=== PATIENT | female | born 1990 | race Hispanic/Latino ===

== ENCOUNTER 2019-10-16 15:31 | Inpatient (IN) | payer OTHER, SELFPAY ==
[2019-10-16] VITALS (19 sets, daily range): BP systolic 81–122; BP diastolic 49–98; PULSE 55–97; RESP 16; TEMP 36.4–37.1; O2SAT 99; BMI 37.4
--- NOTE | 2019-10-16 16:02 | LDADM ---
This patient, Iwona Kelley, was admitted to Labor/Delivery/Recovery 106 on 10/16/19 at 15:31. Plans for labor, pain management and were discussed with patient. Patient/family oriented to hospital policies and general routines including ID bracelet, bed and alarms, visiting hours, pain management, procedures, bathroom and other care routines, personal items, smoking policy, room service/diet and guest tray routines, security routines, and visiting hours. Patient/Family are encouraged to report perceived risks to care and to ask questions if they do not understand what they are told or what they should do. See OBIX for further documentation.
--- NOTE | 2019-10-16 16:13 | WPDOBADMIT ---
Obstetrics - Admit Note Admission Note: record reviewed. Additions to the history and/or subsequent changes in the physical findings follow. 28 y/o at 37 6/7 weeks here with contractions. Was examined in the office by Dr. Anupam Rubio and found to have cervical dilation to 6 cm. GBS neg. Her partner is on his way here from work. AVSS NST good variability. TOCO: contractions irregularly ABD soft, nontender, gravid, vertex EXT nontender Cervix 6cm as above. A: IUP at term with labor. P: Anticipate
[2019-10-16 16:14] LABS: Basophils Percent Auto 0.1 % (0.2-1.2); Eosinophils Percent Auto 0.3 % (0-4.4); Hematocrit 30.5 % (37.0-47.0); Hemoglobin 10.1 g/dL (12.0-15.0); Immature Granulocyte Absolute 0.02 K/mm3 (0.00-0.031); Immature Granulocyte Percent A 0.3 % (0-0.5); Lymphocytes Absolute Auto 1.33 K/mm3 (0.9-3.2); Lymphocytes Percent Auto 19.1 % (18.3-44.2); Mean Corpuscular HGB Conc 33.1 g/dl (32-36); Mean Corpuscular Hemoglobin 30.2 pg (26-34); Mean Corpuscular Volume 91.3 fl (80-100); Mean Platelet Volume 12.2 fl (7.4-10.4); Monocytes Absolute Auto 0.3 K/mm3 (0.1-0.6); Monocytes Percent Auto 4.9 % (2.6-8.5); Neutrophils Absolute Auto 5.3 K/mm3 (1.3-6.7); Neutrophils Percent Auto 75.3 % (45.5-73.1); Platelet Count Result 171 k/mm3 (150-375); Red Blood Count 3.34 M/mm3 (4.2-5.4); Red Cell Distribution Width 13.5 % (11.5-14.5)
--- NOTE | 2019-10-16 16:39 | PM.OBPNLAB ---
Pain Control Date/time seen: 10/16/19 16:39 Comments: Feeling irregular contractions. Pelvic Exam Dilation (cm): 6 Effacement (%): 50 station: -1 Comments: AROM with clear fluid. Contractions Contraction frequency: 5 Contraction pattern: Irregular Status status: Category l Assessment and Plan Comments: Expectant management. Anticipate .
[2019-10-16] MEDS: OXYTOCIN 30 UNITS/NS 500 ML 30 UNITS/500 ML BAG IV CONT (18:47)
[2019-10-16] MEDS: LACTATED RINGERS 1,000 ML 125 ML IV CONT (18:48)
--- NOTE | 2019-10-16 20:05 | P.PCNOB_ITS ---
OB - Delivery Note Procedure Delivery date: 10/16/19 Procedure: Delivery monitor: external FHT and external uterine Route of delivery: Delivery repair: vicryl (3-0) Specimen: Yes (cord blood) Estimated blood loss (mL): 310 Anesthesia type: Local (1% lidocaine) Disposition: PACU Complications: None Narrative: 28 y/o at 37 6/7 weeks gestation who presented to the hospital with contractions. Labor was diagnosed. Amniotomy was performed with return of clear fluid. Oxytocin was subsequently administered intravenously for labor augmentation. Her labor progressed and her cervix dilated completely. She pushed with good effort and delivered the 's head to the perineum, followed by the body. The nose and mouth were bulb suctioned. After a delay, the cord was clamped and cut. The infant was handed off the field. Cord blood was collected. The placenta delivered spontaneously and was grossly normal in appearance. The usual 3 vessel cord was noted. A right-sided labial laceration was sustained, as was a first degree midline perineal laceration. Ten mL of 1% lidocaine was infiltrated, and these were reapproximated using 3-0 Vicryl in interrupted, [id number] fashion. Excellent hemostasis resulted as did excellent reapproximation of the normal anatomy. Needle and instrument counts were correct. The patient was taken to recovery room in stable condition. The infant went to the nursery in stable condition. I was present and scrubbed for the entire delivery. [place] Baby Date of : 10/16/19 Time of : 19:43 Weeks of gestation at delivery: 37 Infant gender: Male Weight (pounds): 7 Weight (ounces): 10 presentation: vertex position: Right Occiput Anterior Placenta delivery description: Spontaneous and Normal Configuration cord vessel description: 3 Vessels score one minute: 9 score five minutes: 9
--- NOTE | 2019-10-16 20:12 | PM.OBDSVD ---
DS: Admitting Diagnosis Admitting Diagnosis Admitting Diagnosis: Labor at term DS: Discharge Diagnosis Discharge Diagnosis (1) (normal spontaneous vaginal delivery): Code(s): O80 - Encounter for full-term uncomplicated delivery Status: Acute OB - DS: Summary OB Procedures : None OB Procedures Intrapartum: Spontaneous Vag Delivery OB Procedures: : None DS: Data Data Completed and Pending Labs on day of discharge: Labs from last 24 hours 10/16/19 10/16/19 10/16/19 16:06 16:06 16:06 WBC 7.0 RBC 3.34 L Hgb 10.1 L Hct 30.5 L MCV 91.3 MCH 30.2 MCHC 33.1 RDW 13.5 Plt Count 171 MPV 12.2 H Immature Gran % (Auto) 0.3 Neut % (Auto) 75.3 H Lymph % (Auto) 19.1 [place] % (Auto) 4.9 Eos % (Auto) 0.3 Baso % (Auto) 0.1 L Lymph # (Auto) 1.33 [place] # (Auto) 0.3 Eos # (Auto) 0.0 Baso # (Auto) 0.0 Abs Immat Gran (auto) 0.02 Absolute Neuts (auto) 5.3 Absolute Nucleated RBC 0.0 Nucleated RBC % 0.0 RPR Pending Blood Type A Positive Antibody Screen Negative Discharge Plan Discharge Attending physician on discharge: Dhruv Toussaint Discharging Clinician: Dhruv Toussaint Patient Disposition: Home, Self-Care Activity: pelvic rest Diet: regular Discharge Instructions: Education: Mom and Baby Guide Given to: Mother Follow-Up: Call your delivering provider's office for an appointment to be seen in: 4 Weeks Mom and baby should come to the [facility] for the follow-up appointment. Appointment Date/Time: October 18, 2019 at 10:00 am What to expect at your follow-up visit: Blood Pressure Check Physical Assessment Call [phone] if you are unable to keep your appointment time. BREAST CARE: 1. Wear a snug supportive bra. 2. For engorgement discomfort: Breast Feeding: A. Apply warm moist washcloths B. Express milk as needed to relieve engorgement C. Wear loose clothing 3. For sore nipples: A. Identify correct latch-on B. Apply warm moist washcloths before and after nursing C. Air dry nipples after nursing D. May apply Lansinoh cream to nipples EPISIOTOMY/PERINEAL CARE: 1. Until bleeding stops, use your kyle bottle after urinating 2. Change your pad frequently throughout the day 3. You may take sitz baths several times a day (fill your bathtub with warm water and soak for 20 minutes.) Do NOT bathe in the water 4. No tub baths until seen by your physician - You may shower ACTIVITY: 1. Rest as much as possible. 2. Do not exercise or lift anything heavier than your baby (such as laundry or other children.) 3. Avoid stairs or driving as much as possible. 4. Do not put anything into the vagina. No douching, tampons, or sexual activity until seen by physician. NOTIFY PHYSICIAN IF YOU HAVE ANY QUESTIONS OR IF ANY OF THE FOLLOWING SYMPTOMS OCCUR: 1. If your perineum becomes red, swollen, or more painful than what you have experienced in the hospital. 2. If your vaginal bleeding becomes foul smelling. 3. If your vaginal bleeding becomes more heavy than a period or if your bleeding changes from pink to bright red. However, you may pass an occasional walnut-sized clot once or twice for the first week . 4. If you experience a sharp, shooting pain in your calves. 5. If you discover a hard, reddened area on your breast or if you experience flu-like symptoms. DIET: 1. Eat regular, well-balanced meals. 2. Drink plenty of fluids daily. If , drink to thirst. Call or return if temperature above 100.4? F, increased abdominal pain, increased vaginal bleeding or any new problems. Stand Alone Forms: General Discharge Information Follow-up/Referrals: Dhruv Toussaint MD [Physician] - (6 weeks) Discharge Medications: New ibuprofen 600 mg tablet 600 mg
[2019-10-16] MEDS: OXYTOCIN 30 UNITS/NS 500 ML 30 UNITS/500 ML BAG 125 UNITS IV CONT (20:15)
[2019-10-16] MEDS: IBUPROFEN 600 MG TABLET PO (20:56)
[2019-10-16] MEDS: WITCH HAZEL 40 PADS 1 PAD TOPICAL (21:21)
[2019-10-16] MEDS: BENZOCAINE 20% AER SPR (*SP) 56 GM CAN 1 SPRAY TOPICAL (21:21)
--- NOTE | 2019-10-16 22:13 | PC.NURSE ---
This patient, Iwona Kelley, was received from Labor & Delivery on 10/16/19 at 2205. Personal belongings list checked and signed. Patient/family oriented to unit policies and routines
[2019-10-16] MEDS: ACETAMINOPHEN 325 MG TABLET 650 MG PO (22:38)
[2019-10-17] MEDS: IBUPROFEN 600 MG TABLET PO ×3 (05:00→16:16)
[2019-10-17 05:40] LABS: Hematocrit 26.4 % (37.0-47.0); Hemoglobin 8.6 g/dL (12.0-15.0)
[2019-10-17 08:05] VITALS: BP 103/64; PULSE 56; RESP 18; TEMP 37.6; O2SAT 100
--- NOTE | 2019-10-17 08:47 | PM.OBPNVD ---
OB - PN: Subj Subjective Date/time seen: 10/17/19 08:47 Narrative: Would like something a little stronger for cramping pain. Otherwise, doing well. Would like circ for son. OB - PN: Obj Data Labs CBC & Chem 7: 10/17/19 05:01 Labs: Laboratory Results - last 24 hr 10/16/19 10/16/19 10/17/19 16:06 16:06 05:01 WBC 7.0 RBC 3.34 L Hgb 10.1 L 8.6 L Hct 30.5 L 26.4 L MCV 91.3 MCH 30.2 MCHC 33.1 RDW 13.5 Plt Count 171 MPV 12.2 H Immature Gran % (Auto) 0.3 Neut % (Auto) 75.3 H Lymph % (Auto) 19.1 [place] % (Auto) 4.9 Eos % (Auto) 0.3 Baso % (Auto) 0.1 L Lymph # (Auto) 1.33 [place] # (Auto) 0.3 Eos # (Auto) 0.0 Baso # (Auto) 0.0 Abs Immat Gran (auto) 0.02 Absolute Neuts (auto) 5.3 Absolute Nucleated RBC 0.0 Nucleated RBC % 0.0 Blood Type A Positive Antibody Screen Negative OB - PN A/P Plan Comments: A: PPD#1, doing well. P: Routine care. Exam Psych: Other: AVSS ABD soft, nontender, fundus firm EXT nontender
[2019-10-17] MEDS: MULTIVIT/MIN/PREN/FOL AC/IRON TABLET 1 TAB PO (09:17)
[2019-10-17] MEDS: DOCUSATE SODIUM 100 MG CAPSULE PO ×2 (09:17→16:16)
[2019-10-17] MEDS: POLYSACCHARIDE IRON COMPLEX 150 MG CAPSULE PO ×2 (09:18→16:16)
[2019-10-17] MEDS: LANOLIN (LANSINOH) 7.5 GM CREAM 1 APPLIC TOPICAL (09:21)
[2019-10-17 09:41] LABS: Rapid Plasma Reagin Non-Reactive (NonReactive)
--- NOTE | 2019-10-17 10:30 | PC.NURSE ---
Consult with pt., mother reports infant is eagerly feeding without difficulties or discomfort. This is mother's 4th to breastfeed. M other reports infant just fed at 1000, requested mother call out for next feeding for observation. Mother wishes to be discharged today. Reviewed LC stock speculator need to see infant feeding. Reviewed feeding cues, frequencies, duration of feedings, feeding elimination flow sheet, and signs of adequate intake. Request mother call out next feeding, next feeding should be initiated three hours from start of last feeding or if feeding cues are noted before. Mother voiced understanding of information shared. Mother is feeding as required and waking infant to feed if needed. has had several by feeding log in the past 24 hours. Mother states she feels confident to continue effective at home. Reviewed transition to breast milk, signs of adequate intake, and engorgement/relief. Instructed to call ICP if intake/output less than required. Reviewed regular medications mother is taking. Information provided per Mary Alice. Reviewed community resources on the [facility] website and in the Mom/Baby guide. Information on outpatient services provided. Mother has no further questions at this time.
[2019-10-17 19:30] VITALS: BP 107/64; PULSE 53; RESP 18; TEMP 36.4
[2019-10-17] MEDS: TETANUS,DIPHTHERIA,AC PERTUSSIS ADULT (0.5 ML) BOOSTRIX IM (21:14)
[2019-10-18 10:20] VITALS: BP 116/67; PULSE 54; RESP 20; TEMP 37.2; O2SAT 100
[2019-10-18 11:16] VITALS: BP 131/85; PULSE 78; RESP 20; TEMP 37; O2SAT 100
== END 2019-10-17 21:28 | disposition home or self-care (01) | DRG 560 ==
LOC: ANHLDR 20:14 → ANHOB2 22:30
PROVIDERS: Admitting Provider Obstetrics & Gynecology; PCP Family Medicine; Visit Provider Obstetrics & Gynecology
DX: O70.0 First degree perineal laceration during delivery (principal); Z37.0 Single live birth; Z3A.37 37 weeks gestation of pregnancy
CPT/HCPCS: 36415; 85014; 85018; 85025; 86592; 86850; 86900; 86901; 90715; A9270; J2590; J7120

== ENCOUNTER 2020-02-19 00:43 | Outpatient (CLI) | payer OTHER, SELFPAY ==
[2020-02-20 03:00] LABS: SARS-CoV-2 RNA PCR Negative
== END 2020-02-19 00:44 | disposition home or self-care (01) ==
LOC: ANHCOVIDDT 00:43
PROVIDERS: PCP Family Medicine; Visit Provider Obstetrics & Gynecology
DX: Z01.812 Encounter for preprocedural laboratory examination (principal); Z20.828 Contact with and (suspected) exposure to other viral communicable diseases
CPT/HCPCS: 87635; C9803; U0003

== ENCOUNTER 2020-02-21 02:23 | Day surgery (SDC) | payer OTHER, SELFPAY ==
[2020-02-10 14:39] VITALS: BMI 34.5
[2020-02-21] VITALS (9 sets, daily range): BP systolic 102–122; BP diastolic 61–80; PULSE 57–98; RESP 14–20; TEMP 36–36.1; O2SAT 98–100
--- NOTE | 2020-02-21 00:18 | PM.IMHP ---
H&P: HPI History of Present Illness Date/Time: 02/21/20 00:18 Chief complaint: Desires Sterilization Narrative: 29 y/o desiring permanent contraception. In addition, she has heavy, long-lasting menses and is interested in surgical management of that problem. Finally, she would like to have have her Nexplanon removed. Review of Systems Review of Systems: All systems reviewed & are unremarkable except as noted in HPI and below PMFSH Past Medical History Medical History (Updated 02/21/20 @ 11:53 by Dhruv Toussaint MD) History of meningitis Surgical History Surgical History (Updated 02/21/20 @ 11:53 by Dhruv Toussaint MD) History of surgery on right wrist Family History Family History Mother Diabetes mellitus Sibling Diabetes mellitus Social History Social History Years smoked: 1 Smoking status: Never smoker Smoking end date: 02/10/08 Alcohol intake: current Alcohol use details: 3 to 4 cans beer monthly Substance use: never Living arrangements: with family Spiritual care concerns: No Meds Home Medications and Allergies Home Medications Medication Instructions Recorded Confirmed Type No Home Medications 02/10/20 02/10/20 History Allergies Allergy/AdvReac Type Severity Reaction Status Date / Time No Known Allergies Allergy Verified 02/10/20 14:38 Exam Const: Orientation/consciousness: patient oriented x3 Other: Well-developed, well-nourished female in no acute distress. Neck: Thyroid: thyroid normal Lymphatic: no lymphadenopathy noted (in neck, axilla or inguinal nodes) Resp: Effort & Inspection: normal respiratory effort Auscultation: clear to auscultation bilaterally Cardio: Rate: regular rate Rhythm: regular rhythm Heart sounds: S1 normal heart sound present and S2 normal heart sound present GI: Other: ABD: Soft, nontender, nondistended. No guarding or rebound tenderness. No hepatosplenomegaly. : General: Yes no CVA tenderness Other: External genitalia: normal female hair distribution, without lesion. Urethral meatus: no lesion, non prolapsed. Bladder: no mass, nontender Vagina: well-estrogenized, without lesion or discharge. No cystocele or rectocele. Cervix: no lesion or discharge. Uterus: small, anteverted, freely mobile, nontender Adnexa: no mass or tenderness. Anus/perineum: no lesions, nontender Back/Spine/Pelvis: Back: no CVA tenderness Skin: General skin exam: normal color and no rashes or lesions noted Neuro: General: patient oriented x3 Extrem: Other: Extremities: nontender with no edema Psych: Mental Status: mental status grossly normal Affect: normal affect Assessment and Plan Assessment and plan (1) Menometrorrhagia: Code(s): N92.1 - Excessive and frequent menstruation with irregular cycle Status: Acute (2) Unwanted fertility: Code(s): Z30.09 - Encounter for other general counseling and advice on contraception Status: Acute Assessment and Plan: She understands there are temporary methods of contraception available to her. She understands that there are nonsurgical options as well as surgical options. She understands that tubal ligation will render her permanently sterile. She understands that there is a failure rate associated with tubal ligation, as well as an inherent ectopic gestation risk. Furthermore, she understands risks of surgery to include risks of anesthesia, risks of pain, infection, bleeding, blood products, thromboembolic phenomena and damage to adjacent structures such as bowel, bladder, ureters, blood vessels and nerves. She understands all these risks and elects to proceed with surgery. She has received the [employer] pamphlet on surgical sterilization. Finally, she would like to have her Nexplanon julee removed and to undergo hysteroscopy, D&C and endometrial a
--- NOTE | 2020-02-21 11:23 | WPDANESEPPF ---
Anes - Initial Pre Proc Eval Procedure: Operation Date: 02/21/20 13:00 Proposed Procedures p Laparoscopic Bilateral Tubal Sterilization With Fallopian Rings - Dhruv Toussaint MD s Hysteroscopy, Dilation and Curettage, Ruth Ann Ablation - Dhruv Toussaint MD Date/Time: 02/21/20 11:23 Surgeon: Dhruv Toussaint MD Pre Op Diagnosis: Desires Sterilization Patient Data Age: 29 Gender: F Height: 5 ft 4 in Weight: 91.4 kg Allergies Allergy/AdvReac Type Severity Reaction Status Date / Time No Known Allergies Allergy Verified 02/10/20 14:38 Home Medications Medication Instructions Recorded Confirmed Type No Home Medications 02/10/20 02/10/20 History Patient hx anesthesia problems: none Family hx anesthesia problems: none PMFSH Family History Family History Mother Diabetes mellitus Sibling Diabetes mellitus Social History Social History Years smoked: 1 Smoking status: Never smoker Smoking end date: 02/10/08 Alcohol intake: current Alcohol use details: 3 to 4 cans beer monthly Substance use: never Living arrangements: with family Spiritual care concerns: No Anes - Eval Final PreProcedure Day of Procedure 02/21/20 11:23 Patient weight: obese Heart: regular rate and rhythm Lungs: clear to auscultation Airway: Mallampati scale class II Neurological: alert and oriented Last oral intake: >/= 8 hours ASA classification: II Emergent: no Anesthetic plan: proceed Anesthesia type and monitoring: general ETT and standard monitoring Informed Consent: The patient's anesthetic plan and its attendant risks and benefits were discussed with the patient/family/POA. Questions were solicited and answers provided to the satisfaction of the patient/family/POA.
[2020-02-21] MEDS: LACTATED RINGERS 1,000 ML 30 ML IV CONT ×2 (11:40→14:14)
--- NOTE | 2020-02-21 12:00 | WPDHPUPDATE1 ---
History and Physical Update Update Date/Time: 02/21/20 12:00 History and Physical has been reviewed, including an updated exam of the patient. There are NO changes in the patient's condition. Risks, benefits, and alternatives have been discussed and questions answered. Patient agrees to proceed with procedure.
--- NOTE | 2020-02-21 14:07 | PM.PROC ---
Procedure Note - Detailed Date of procedure: 02/21/20 Pre-op diagnosis: Desires Sterilization Desired sterility Menometrorrhagia Post-op diagnosis: same Procedure performed: Laparoscopic bilateral tubal ligation with Falope rings Hysteroscopy Dilation and sharp curettage Endometrial ablation Removal of Nexplanon contraceptive julee Description of procedure: The patient was taken to the operating room where she was prepared and draped in the usual sterile fashion the dorsal lithotomy position. The bladder was drained with a red rubber catheter. A sterile speculum was placed into the vagina and anterior lip of the cervix was grasped with a single-tooth tenaculum. The acorn uterine manipulator was placed. The speculum was withdrawn. Gloves were changed and attention was turned to the abdomen. An infraumbilical skin incision was made below the umbilicus. The abdomen was tented and the 5mm bladeless trocar was advanced under direct laparoscopic visualization. Pneumoperitoneum was administered using carbon dioxide gas. A survey of the pelvis and abdomen yielded the findings noted above. A 2nd 8mm skin incision was made above the symphysis pubis in the midline and the bladeless trocar was advanced under direct laparoscopic visualization. The right fallopian tube was identified by following it out to the fimbriated end. It was then grasped in the midportion and a Falope ring was applied. An excellent application was noted, with a knuckle of tube distal to the ring. The device was reloaded and the left fallopian tube was similarly identified and ligated. Once again, an excellent application was noted. A total of 6mL of 1% lidocaine was then infiltrated into the serosa of the proximal tubes for pain control. The ports were withdrawn. Gas was allowed to escape. The skin incisions were reapproximated using 4 0 Vicryl in interrupted subcuticular fashion. Dermaflex was applied externally. Attention was then redirected to the vagina where the acorn manipulator was withdrawn and the speculum was reintroduced. Ten mL of 1% lidocaine was administered in a paracervical block. The cervix was gently dilated using Hegar dilators until an 8mm dilator could be passed. Hysteroscopy was performed using sterile saline as distention medium with the findings noted above. Sharp curettage was then performed and endometrial curettings were collected on a Telfa pad and passed off to be sent to pathology. Finally, the Ruth Ann device was advanced. Endometrial ablation commenced without difficulty. A 2nd look was taken with the hysteroscope, confirming excellent coverage of the endometrial cavity. The tenaculum was removed. Hemostasis was excellent. Attention was then directed to the left arm which was prepped with Betadine and infiltrated with an additional 2mL of 1% lidocaine. A stab incision was made with a 11. Scalpel. A curved hemostat was used to grasp the Nexplanon julee. It was easily removed, intact, and discarded. Hemostasis excellent here as well. Sponge, lap, needle and instrument counts were correct. The wound was dressed with Steri-Strips and a pressure dressing. She was awakened and taken to recovery room in stable condition. I was present and scrubbed for the entire procedure. Implants: Falope rings x 2 Anesthesia: GETA and local (1% lidocaine) Surgeon: Dhruv Toussaint MD Estimated blood loss (mL): 10 Drains: No Packing: No Pathology: yes (endometrial curettings) Complications: None Condition: stable Disposition: PACU Findings: Normal-appearing uterus, tubes, ovaries, round and uterosacral ligaments bilaterally. Normal anterior and posterior cul de sac. Normal-appearing appendix. Normal right upper quadrant anatomy. Endometrial cavity was unremarkable. Both tubal ostia seen. The uterus sounded to a depth of 8cm with a cervical length of 3cm, giving a subtracted uterine cavity length of 5cm. The Nexplanon julee was noted to be in the expected location in
[2020-02-21] MEDS: fentaNYL CITRATE INJ (*CRX) 100 MCG/2 ML VIAL 25 MCG IV PUSH ×4 (14:44→15:19)
[2020-02-21] MEDS: KETOROLAC 30 MG/ML VIAL (*BKC) IV PUSH (14:53)
[2020-02-21] MEDS: oxyCODONE HCL (*CRX) 5 MG TAB IR PO (15:58)
== END 2020-02-21 16:30 | disposition home or self-care (01) ==
PROVIDERS: PCP Family Medicine; Visit Provider Obstetrics & Gynecology
PROC: (CPT 58671; principal; 2020-02-21 13:00)
PROC: 0U5B8ZZ Destruction of Endometrium, Via Natural or Artificial Opening Endoscopic (ICD-10-PCS; CPT 58563; 2020-02-21 13:00)
DX: Z30.2 Encounter for sterilization (principal); N92.1 Excessive and frequent menstruation with irregular cycle; Z30.49 Encounter for surveillance of other contraceptives; E66.9 Obesity, unspecified; Z68.35 Body mass index [BMI] 35.0-35.9, adult
CPT/HCPCS: 58563; 11982; 58671; 88305; A4264; A9270; J1885; J2250; J3010; J7030; J7120

== ENCOUNTER 2021-11-17 07:50 | Outpatient (CLI) | payer OTHER, SELFPAY ==
--- NOTE | ~2021-11-17 | MR_ITS ---
EXAMINATION: MR brain/brain stem wo/w con DATE: 11/17/2021 08:36 INDICATION: Postconcussion syndrome. TECHNIQUE: Magnetic resonance imaging (MRI) of the brain and brainstem was performed without and with 18 mL MultiHance intravenous contrast. COMPARISON: None. FINDINGS: There is no intracranial hemorrhage, acute infarction, or abnormal intracranial mass lesion . The ventricles are normal in size. The paranasal sinuses are clear. The orbits are normal. The mast oid air cells are normal. IMPRESSION: 1. Normal brain. Reviewed, dictated and finalized at location A. IMPRESSION: 1. Normal brain.
== END 2021-11-17 07:51 | disposition home or self-care (01) ==
PROVIDERS: PCP Family Medicine; Visit Provider Family Medicine
DX: F07.81 Postconcussional syndrome (principal)
CPT/HCPCS: 70553; A9577

== ENCOUNTER 2023-06-12 17:18 | Emergency (ER) | payer OTHER, SELFPAY ==
[2023-06-12 17:26] VITALS: BP 116/69; PULSE 92; RESP 16; TEMP 37; O2SAT 98
--- NOTE | 2023-06-12 18:14 | ED.URI ---
HPI - URI/Sore Throat General Chief Complaint: Upper Respiratory Infection Stated Complaint: Cough Time Seen by Provider: 06/12/23 18:14 Source: patient Mode of arrival: ambulatory Limitations: no limitations History of Present Illness HPI Narrative: 32-year-old female presents with complaint of nasal congestion, postnasal drainage, coughing for 3 weeks. Taking [id number] TheraFlu with no relief of symptoms. No chest pain or shortness of breath. All systems reviewed and negative except as noted above. Related Data Allergies Allergy/AdvReac Type Severity Reaction Status Date / Time No Known Allergies Allergy Verified 06/12/23 17:33 Review of Systems Review of Systems: CONSTITUTIONAL: Denies fever, chills, or sweats. reports fatigue. EYES: Denies visual changes, redness, or discharge. ENT: Reports rhinorrhea, congestion. Denies sore throat, or otalgia. CARDIOVASCULAR: Denies chest pain, palpitations, or edema. RESPIRATORY: reports cough. Denies dyspnea. GASTROINTESTINAL: Denies abdominal pain, nausea, vomiting, or diarrhea. GENITOURINARY: Denies dysuria or hematuria. SKIN: Denies rash or itching. MUSCULOSKELETAL: Denies back pain, joint pain, or myalgia. NEUROLOGIC: Denies headache, numbness, or weakness. PSYCHIATRIC: Denies anxiety or depression. All other systems reviewed are negative, except as documented in HPI. [facility] Past Medical History Medical History (Updated 06/12/23 @ 18:21 by Carlyn May NP) History of meningitis Surgical History Surgical History (Updated 02/21/20 @ 11:53 by Dhruv Toussaint MD) History of surgery on right wrist Family History Family History Mother Diabetes mellitus Sibling Diabetes mellitus Social History Social History Years smoked: 1 Smoking status: Never smoker Smoking end date: 02/10/08 Alcohol intake: current Alcohol use details: 3 to 4 cans beer monthly Substance use: never Living arrangements: with family Spiritual care concerns: No Comments At time of signature, agree with nursing past medical, surgical, social and family history. There is no relevant family history pertinent to the presenting complaint. Exam Narrative: GENERAL: This is a well-nourished, well-developed patient, in no apparent distress. HEAD: normocephalic, atraumatic. EYES: PERRL. Sclera clear/white. Vision is grossly intact. EARS: External ears normal, auditory canals clear and without drainage, TMs normal without perforation. Hearing grossly intact. NOSE: External nose normal with Purulent nasal drainage, moderate congestion erythema and swelling to bilateral nares. THROAT: Mucous membranes moist, Postnasal drainage NECK: Neck supple, non-tender without lymphadenopathy, masses or thyromegaly. CARDIOVASCULAR: Regular rate and rhythm without murmurs, gallops, or rubs. RESPIRATORY: Clear to auscultation. Breath sounds equal bilaterally. No wheezes, rales, or rhonchi. SKIN: warm, Dry, intact with no suspicious lesions or rash, good texture and turgor. NEURO: awake, alert, and oriented to person, place and time. There were no obvious focal neurologic abnormalities. EXTREMITIES: No joint tenderness, effusion, or edema noted. Course Course Level of Care: Express Care Visit Vital Signs Vital signs: Vital Signs Temperature 37.0 C 06/12/23 17:26 Pulse Rate 92 06/12/23 17:26 Respiratory Rate 16 06/12/23 17:26 Blood Pressure 116/69 06/12/23 17:26 Pulse Oximetry 98 06/12/23 17:26 Oxygen Delivery Room Air 06/12/23 17:26 Temperature 37.0 C 06/12/23 17:26 Pulse Rate 92 06/12/23 17:26 Respiratory Rate 16 06/12/23 17:26 Blood Pressure 116/69 06/12/23 17:26 Pulse Oximetry 98 06/12/23 17:26 Oxygen Delivery Room Air 06/12/23 17:34 reviewed MDM - URI/Sore Throat MDM Narrative Medical
== END 2023-06-12 18:25 | disposition home or self-care (01) ==
PROVIDERS: Emergency Provider Nurse Practitioner Family; PCP Family Medicine
DX: J06.9 Acute upper respiratory infection, unspecified (principal); Z87.891 Personal history of nicotine dependence
CPT/HCPCS: 99213; G0463